=== PATIENT | male | born 1990 | race Caucasian/White ===

== ENCOUNTER → 2016-06-26 | Outpatient (CLI) | payer MEDICAID ==
--- NOTE | 2016-06-27 05:56 | RADIOLOGY REPORT PS360 ---
EXAM: LUMBAR SPINE 5 VIEWS HISTORY: LOW BACK PAIN ORDERING PHYSICIAN: Nikos Mcneil PATIENT AGE: 26 years COMPARISON: None FINDINGS: Mild grade 1 spondylolytic spondylolisthesis L5 on S1 with 4 mm anterolisthesis of L5 on S1 and mild degenerative disc disease and facet arthritic change at that level. No fracture or dislocation. No lytic or blastic change.No obstructive process evident.. IMPRESSION: Grade 1 spondylitic spondylolisthesis of L5 on S1 with degenerative disc disease and mild facet arthritic change at that level
== END ==
LOC: RAD 16:21
DX: M54.5 Low back pain (principal)